=== PATIENT | female | born 1985 | race Caucasian/White ===

== ENCOUNTER 2017-07-13 04:21 | Emergency (ER) | payer BC ==
[~2017-07-13] VITALS: Ht 165.1 cm; Wt 45.4 kg
[~2017-07-13 04:21] MED LIST: ACET-2154 PO; DIAZ2TAB PO; ETHI1TAB24 PO; LIDO20SO PO; Nystatin PO; ONDA4TAB5 IV; OXYC5CAP18 PO; RIZA10TA27 PO
--- NOTE | 2017-07-13 04:25 | NUR ---
DR YISEL REDMOND MD AT BEDSIDE FOR MSE.
[2017-07-13] MEDS ORDERED: IV NORMAL SALINE 1000 ML BAG IV ONE ×2 (04:30→06:30)
[2017-07-13] MEDS ORDERED: KETOROLAC TROMETHAMINE 30 MG INJ IVP ONE (04:30)
[2017-07-13] MEDS ORDERED: ONDANSETRON 4 MG/2 ML VIAL IV ONE (04:30)
[2017-07-13] MEDS ORDERED: MORPHINE SULFATE 2 MG/1 ML DISP.SYRIN IV ONE (04:30)
[2017-07-13] MEDS ORDERED: MORPHINE SULFATE 4 MG/1 ML DISP.SYRIN ONE ×2 (04:38→05:26)
[2017-07-13] MEDS ORDERED: KETOROLAC TROMETHAMINE 30 MG INJ ONE (04:38)
[2017-07-13] MEDS ORDERED: ONDANSETRON 4 MG/2 ML VIAL ONE (04:38)
[2017-07-13] MEDS ORDERED: CAMBIA PO (04:51)
[2017-07-13] MEDS ORDERED: XANAX PO (04:51)
[2017-07-13] MEDS ORDERED: ADDERALL PO (04:53)
[2017-07-13 04:56] LABS: BASOPHILS # (AUTO) 0.1 K/uL (0.0-8.0); BASOPHILS % (AUTO) 1.1 % (0.0-2.0); EOSINOPHILS # (AUTO) 0.1 K/uL (0.0-0.7); EOSINOPHILS % (AUTO) 0.9 % (0.0-7.0); HEMATOCRIT 42.4 % (31.2-41.9); HEMOGLOBIN 14.3 g/dL (10.9-14.3); LYMPHOCYTES # (AUTO) 3.4 K/uL (20.0-40.0); LYMPHOCYTES % (AUTO) 30.2 % (20.5-51.5); MEAN CORPUSCULAR HEMOGLOBIN 30.7 uug (24.7-32.8); MEAN CORPUSCULAR HGB CONC 34 g/dL (32.3-35.6); MEAN CORPUSCULAR VOLUME 91.1 fL (75.5-95.3); MONOCYTES # (AUTO) 0.9 K/uL (2.0-10.0); MONOCYTES % (AUTO) 8.3 % (0.0-11.0); NEUTROPHILS # (AUTO) 6.8 K/uL (1.8-8.9); NEUTROPHILS % (AUTO) 59.5 % (38.5-71.5); PLATELET COUNT (AUTO) 335 K/uL (179-408); RED BLOOD CELL COUNT(AUTO) 4.66 MIL/uL (3.63-4.92); WHITE BLOOD COUNT (AUTO) 11.3 K/uL (3.8-11.8)
[2017-07-13 05:13] LABS: *BILIRUBIN,URIN NEGATIVE (NEGATIVE); *BLOOD, URINE 3+ (NEGATIVE); *CLARITY,URINE CLOUDY (CLEAR); *COLOR,URINE YELLOW (YELLOW); *KETONES,URINE 1+ (NEGATIVE); *PROTEIN,URINE NEGATIVE (NEGATIVE); *UROBILINOGEN,URINE 0.2 E.U./dl (NORMAL); LEUKOCYTE ESTERASE ,URINE NEGATIVE (NEGATIVE); NITRITE, URINE NEGATIVE (NEGATIVE); PH,URINE 8.5 (5.0-8.0); UGLUCOSE NEGATIVE (NEGATIVE)
[2017-07-13 05:15] LABS: BILIRUBIN,DIRECT 0.1 mg/dL (0.0-0.2); BILIRUBIN,TOTAL 0.5 mg/dL (0.2-1.0); CREATININE 0.7 mg/dL (0.6-1.3); POTASSIUM 3.1 mmol/L (3.5-5.1); TOTAL PROTEIN, SERUM 6.9 g/dL (6.4-8.2)
--- NOTE | 2017-07-13 05:15 | NUR ---
RADIOLOGY PAGED FOR CT. CONSENT OBTAINED FROM PT.
[2017-07-13 05:23] LABS: BACTERIA,URINE NONE SEEN /HPF (NONE SEEN); RBC,URINE TNTC /HPF (0-3); SQUAMOUS EPITHELIAL CELL,UR MODERATE /HPF (NONE SEEN); TRIPLE PHOSPHATE CRYSTAL,UR FEW /HPF (NONE SEEN); URINE AMORPHOUS PHOSPHATES MANY /HPF
[2017-07-13] MEDS ORDERED: MORPHINE SULFATE 4 MG/1 ML DISP.SYRIN IV ONE (05:30)
--- NOTE | 2017-07-13 05:41 | NUR ---
PT TAKEN DOWN TO CT BY CENTER MACHINE OPERATOR. NO DISTRESS NOTED.
[2017-07-13 05:54] LABS: BAND % (MANUAL) 1 % (0-10); BASOPHILS % (MANUAL) 1 % (0-2); LYMPHOCYTES % (MANUAL) 35 % (20-40); METAMYELOCYTES % 3 % (0-1); MONOCYTES % (MANUAL) 1 % (2-10); MYELOCYTES % 3 % (0-0); NEUTROPHILS % (MANUAL) 51 % (42-75); PROMYELOCYTES % 4 %
[2017-07-13] MEDS ORDERED: TAMSULOSIN HCL 0.4 MG CAP.SR.24H ONE (06:37)
[2017-07-13] MEDS ORDERED: TAMSULOSIN HCL 0.4 MG CAP.SR.24H PO ONE (06:45)
[2017-07-13 07:06] VITALS: BP 138/82
== END 2017-07-13 07:06 | disposition home or self-care (01) ==
LOC: ER 04:22
DX: N23 Unspecified renal colic (principal); Z90.89 Acquired absence of other organs; Z88.1 Allergy status to other antibiotic agents; Z88.2 Allergy status to sulfonamides; Z88.8 Allergy status to other drugs, medicaments and biological substances; Z79.891 Long term (current) use of opiate analgesic; Z79.899 Other long term (current) drug therapy
CPT/HCPCS: 36415; 84703; 85025; A4663; J1885; J2270; J2405; J7030

== ENCOUNTER 2018-01-25 22:51 | Emergency (ER) | payer BC ==
[~2018-01-25] VITALS: Ht 154.9 cm; Wt 49.9 kg
[~2018-01-25 22:51] MED LIST changes: -ACET-2154 PO; +ADDERALL PO; +CAMBIA PO; -DIAZ2TAB PO; -LIDO20SO PO; -Nystatin PO; -ONDA4TAB5 IV; -OXYC5CAP18 PO; +XANAX PO
[2018-01-25] MEDS ORDERED: ACETAMINOPHEN (23:04)
[2018-01-25] MEDS ORDERED: ALPRAZOLAM 1 MG TABLET (23:04)
[2018-01-25] MEDS ORDERED: ONDANSETRON ODT 4 MG TABLET (23:04)
[2018-01-25] MEDS ORDERED: CAFFEINE (23:04)
[2018-01-25] MEDS ORDERED: BUTALBITAL (23:04)
[2018-01-25] MEDS ORDERED: AZITHROMYCIN (23:04)
[2018-01-25] MEDS ORDERED: ONDANSETRON 4 MG/2 ML VIAL IV ONE (23:30)
[2018-01-25] MEDS ORDERED: KETOROLAC TROMETHAMINE 15 MG INJ IV ONE (23:30)
[2018-01-25] MEDS ORDERED: IV NORMAL SALINE 1000 ML BAG IV ONE (23:30)
[2018-01-25] MEDS ORDERED: OXYCODONE/APAP 5-325 MG TABLET PO ONE (23:30)
--- NOTE | 2018-01-25 23:30 | NUR ---
at bedside for eval
[2018-01-25] MEDS ORDERED: OXYCODONE/APAP 5-325 MG TABLET ONE (23:43)
[2018-01-25] MEDS ORDERED: KETOROLAC TROMETHAMINE 30 MG INJ ONE (23:46)
[2018-01-25] MEDS ORDERED: ONDANSETRON 4 MG/2 ML VIAL ONE (23:46)
--- NOTE | 2018-01-26 01:15 | NUR ---
Patient discharged to home in stable conditon. Written and verbal after care instructions given. Patient verbalizes understanding of instructions. No c./o nausea or pain at this time. Able to ambulate independently. All belongings taken with.
[2018-01-26 01:25] VITALS: BP 134/71
== END 2018-01-26 01:26 | disposition home or self-care (01) ==
LOC: ER 22:56
DX: G43.909 Migraine, unspecified, not intractable, without status migrainosus (principal); F17.200 Nicotine dependence, unspecified, uncomplicated; Z90.89 Acquired absence of other organs; Z88.1 Allergy status to other antibiotic agents; Z88.2 Allergy status to sulfonamides; Z88.8 Allergy status to other drugs, medicaments and biological substances
CPT/HCPCS: A4663; J1885; J2405; J7030

== ENCOUNTER 2018-09-19 18:30 | Emergency (ER) | payer BC ==
[~2018-09-19] VITALS: Ht 154.9 cm; Wt 49.9 kg
[~2018-09-19 18:30] MED LIST changes: +ACETAMINOPHEN; +ALPRAZOLAM 1 MG TABLET; +AZITHROMYCIN; +BUTALBITAL; +CAFFEINE; +ONDANSETRON ODT 4 MG TABLET
[2018-09-19] MEDS ORDERED: IV NORMAL SALINE 1000 ML BAG IV ONE ×2 (18:45→19:30)
[2018-09-19] MEDS ORDERED: ONDANSETRON 4 MG/2 ML VIAL IV ONE ×2 (18:45→19:30)
[2018-09-19] MEDS ORDERED: HYDROMORPHONE 1 MG/1 ML DISP.SYRIN IV ONE ×2 (18:45→19:30)
[2018-09-19] MEDS ORDERED: KETOROLAC TROMETHAMINE 30 MG INJ IVP ONE (18:45)
[2018-09-19] MEDS ORDERED: ONDANSETRON 4 MG/2 ML VIAL ONE ×3 (18:47→20:59)
[2018-09-19] MEDS ORDERED: HYDROMORPHONE 2 MG/1 ML DISP.SYRIN ONE ×2 (18:47→19:40)
[2018-09-19] MEDS ORDERED: KETOROLAC TROMETHAMINE 30 MG INJ ONE (18:47)
[2018-09-19] MEDS ORDERED: LEVOFLOXACIN 750 MG/D5W 150 ML PIGGYBACK IV ONE (19:30)
[2018-09-19] MEDS ORDERED: LEVOFLOXACIN 750MG/D5W 150 ML IV ONE (19:40)
[2018-09-19] MEDS ORDERED: ONDANSETRON IV *ER 4 MG/2 ML VIAL IV ONE (21:00)
[2018-09-19] MEDS ORDERED: ONDANSETRON ODT 4 MG TAB.RAPDIS SL ONE (23:15)
[2018-09-19] MEDS ORDERED: ONDANSETRON ODT 4 MG TAB.RAPDIS ONE (23:17)
[2018-09-19 23:31] VITALS: BP 132/86
== END 2018-09-19 23:40 | disposition home or self-care (01) ==
LOC: ER 18:32
DX: N20.0 Calculus of kidney (principal); G43.909 Migraine, unspecified, not intractable, without status migrainosus; F17.200 Nicotine dependence, unspecified, uncomplicated; Z88.1 Allergy status to other antibiotic agents; Z88.8 Allergy status to other drugs, medicaments and biological substances; Z88.2 Allergy status to sulfonamides; Z90.89 Acquired absence of other organs; Z79.899 Other long term (current) drug therapy; Z79.2 Long term (current) use of antibiotics
CPT/HCPCS: 36415; 84702; 96365; 96375; 96376; 99283; J1170 ×2; J1885; J1956; J2405 ×3; A4663; J7030; Q0162

== ENCOUNTER 2019-01-13 02:53 | Emergency (ER) | payer BC ==
[~2019-01-13] VITALS: Ht 154.9 cm; Wt 47.6 kg
--- NOTE | 2019-01-13 03:09 | NUR ---
Dr. Morgan patient room at bedside
[2019-01-13] MEDS ORDERED: BUTALB/ACETAMINOPHEN/CAFFEINE TABLET PO PRN (03:15)
[2019-01-13] MEDS ORDERED: ONDANSETRON 4 MG/2 ML VIAL IV ONE (03:15)
[2019-01-13] MEDS ORDERED: KETOROLAC TROMETHAMINE 30 MG INJ IVP ONE (03:15)
[2019-01-13] MEDS ORDERED: IV NORMAL SALINE 1000 ML BAG IV ONE (03:15)
[2019-01-13] MEDS ORDERED: ONDANSETRON 4 MG/2 ML VIAL ONE (03:22)
[2019-01-13] MEDS ORDERED: KETOROLAC TROMETHAMINE 30 MG INJ ONE (03:22)
--- NOTE | 2019-01-13 04:26 | NUR ---
Patient discharged to home in stable conditon. Written and verbal after care instructions given. Patient verbalizes understanding of instructions. patient self ambulatory with steady gait. Patient denies any pain/discomfort prior to discharge. Exit care package and personal belongings taken home with the patient.
[2019-01-13 04:28] VITALS: BP 103/71
== END 2019-01-13 04:29 | disposition home or self-care (01) ==
LOC: ER 02:57
DX: G43.909 Migraine, unspecified, not intractable, without status migrainosus (principal); F41.9 Anxiety disorder, unspecified; F17.200 Nicotine dependence, unspecified, uncomplicated; Z90.89 Acquired absence of other organs; Z88.1 Allergy status to other antibiotic agents; Z88.2 Allergy status to sulfonamides; Z88.8 Allergy status to other drugs, medicaments and biological substances; Z79.899 Other long term (current) drug therapy
CPT/HCPCS: 96361; 96374; 96375; 99283; J1885; J2405; A4663; J7030

== ENCOUNTER 2019-06-11 19:14 | Emergency (ER) | payer BC ==
[~2019-06-11] VITALS: Ht 154.9 cm; Wt 49.9 kg
--- NOTE | 2019-06-11 19:54 | NUR ---
ERMD at bedside for MSE
[2019-06-11] MEDS ORDERED: IV NORMAL SALINE 1000 ML BAG IV ONE (20:00)
[2019-06-11] MEDS ORDERED: ONDANSETRON 4 MG/2 ML VIAL IV ONE ×2 (20:00→22:15)
[2019-06-11] MEDS ORDERED: ALPRAZOLAM 0.25 MG TABLET PO ONE (20:00)
[2019-06-11] MEDS ORDERED: HYDROMORPHONE 1 MG/1 ML DISP.SYRIN IV ONE ×3 (20:00→23:00)
[2019-06-11] MEDS ORDERED: HYDROMORPHONE 1 MG/1 ML DISP.SYRIN ONE ×3 (20:03→23:03)
[2019-06-11] MEDS ORDERED: ALPRAZOLAM 0.5 MG TABLET ONE (20:04)
[2019-06-11] MEDS ORDERED: ONDANSETRON 4 MG/2 ML VIAL ONE ×2 (20:04→22:11)
[2019-06-11 20:10] LABS: BASOPHILS # (AUTO) 0.2 K/uL (0.0-8.0); BASOPHILS % (AUTO) 1.3 % (0.0-2.0); EOSINOPHILS # (AUTO) 0.3 K/uL (0.0-0.7); EOSINOPHILS % (AUTO) 2.4 % (0.0-7.0); HEMATOCRIT 42.5 % (31.2-41.9); HEMOGLOBIN 14.2 g/dL (10.9-14.3); LYMPHOCYTES # (AUTO) 4.6 K/uL (20.0-40.0); LYMPHOCYTES % (AUTO) 37.8 % (20.5-51.5); MEAN CORPUSCULAR HEMOGLOBIN 30.7 uug (24.7-32.8); MEAN CORPUSCULAR HGB CONC 34 g/dL (32.3-35.6); MEAN CORPUSCULAR VOLUME 91.5 fL (75.5-95.3); MONOCYTES # (AUTO) 0.5 K/uL (2.0-10.0); MONOCYTES % (AUTO) 4.4 % (0.0-11.0); NEUTROPHILS # (AUTO) 6.6 K/uL (1.8-8.9); NEUTROPHILS % (AUTO) 54.1 % (38.5-71.5); PLATELET COUNT (AUTO) 339 K/uL (179-408); RED BLOOD CELL COUNT(AUTO) 4.64 MIL/uL (3.63-4.92); WHITE BLOOD COUNT (AUTO) 12.1 K/uL (3.8-11.8)
[2019-06-11 20:27] LABS: CARBON DIOXIDE 29 mmol/L (21-32); CHLORIDE 104 mmol/L (98-107); CREATININE 0.9 mg/dL (0.6-1.3); GLUCOSE 96 mg/dL (74-106); POTASSIUM 4.3 mmol/L (3.5-5.1); UREA NITROGEN, BLOOD 14 mg/dL (7-18)
[2019-06-11 20:33] LABS: ALANINE AMINOTRANSFERASE 19 U/L (14-59); ALKALINE PHOSPHATASE 64 U/L (50-136); ASPARTATE AMINOTRANSFERASE 9 U/L (15-37); BILIRUBIN,DIRECT < 0.1 mg/dL (0.0-0.2); BILIRUBIN,TOTAL 0.2 mg/dL (0.2-1.0); LIPASE 212 U/L (73-393); TOTAL PROTEIN, SERUM 6.6 g/dL (6.4-8.2)
[2019-06-11 21:09] LABS: *BILIRUBIN,URIN NEGATIVE (NEGATIVE); *BLOOD, URINE NEGATIVE (NEGATIVE); *COLOR,URINE YELLOW (YELLOW); *KETONES,URINE NEGATIVE (NEGATIVE); *URINE HCG, QUAL NEGATIVE (NEGATIVE); *UROBILINOGEN,URINE 0.2 E.U./dl (NORMAL); LEUKOCYTE ESTERASE ,URINE NEGATIVE (NEGATIVE); NITRITE, URINE NEGATIVE (NEGATIVE); UGLUCOSE NEGATIVE (NEGATIVE)
[2019-06-11 21:14] LABS: *CLARITY,URINE SLIGHTLY HAZY (CLEAR)
[2019-06-11 21:15] LABS: MUCUS,URINE MANY /LPF (0-FEW); SQUAMOUS EPITHELIAL CELL,UR FEW /HPF (NONE SEEN); URINE AMORPHOUS PHOSPHATES FEW /HPF; WBC,URINE 0-3 /HPF (0-3)
[2019-06-11] MEDS ORDERED: KETOROLAC TROMETHAMINE 30 MG INJ ONE (21:39)
[2019-06-11] MEDS ORDERED: TAMSULOSIN HCL 0.4 MG CAP.SR.24H ONE (22:11)
[2019-06-11] MEDS ORDERED: KETOROLAC TROMETHAMINE 30 MG INJ IVP ONE (22:15)
[2019-06-11] MEDS ORDERED: TAMSULOSIN HCL 0.4 MG CAP.SR.24H PO ONE (22:15)
--- NOTE | 2019-06-11 22:39 | NUR ---
Sherif, US tech at bedside for scan
--- NOTE | 2019-06-11 23:22 | NUR ---
Patient discharged to home in stable conditon. Written and verbal after care instructions given. Patient verbalizes understanding of instructions. IV removed. Catheter intact and site benign. Pressure and 4x4 gauze applied to site. No bleeding noted. Patient ambulated with stable gait.
[2019-06-11 23:23] VITALS: BP 125/89
== END 2019-06-11 23:23 | disposition home or self-care (01) ==
LOC: ER 19:16
DX: R10.9 Unspecified abdominal pain (principal); G43.909 Migraine, unspecified, not intractable, without status migrainosus; F17.200 Nicotine dependence, unspecified, uncomplicated; F41.9 Anxiety disorder, unspecified; R11.2 Nausea with vomiting, unspecified; Z88.1 Allergy status to other antibiotic agents; Z88.8 Allergy status to other drugs, medicaments and biological substances; Z79.899 Other long term (current) drug therapy
CPT/HCPCS: 36415; 76770; 80048; 80076; 81000; 81001; 83690; 84703; 85025; 87086; 96361; 96374; 96375; 96376; 99284; J1170 ×3; J1885; J2405 ×2; A4663; C1758; J7030

== ENCOUNTER 2019-09-28 09:56 | Emergency (ER) | payer BC, MEDICAID ==
[~2019-09-28] VITALS: Ht 160 cm; Wt 61.2 kg
[~2019-09-28 09:56] MED LIST changes: +ALBU8HFA4 INH; -AZITHROMYCIN; -ETHI1TAB24 PO; +HYDR-501 PO; +LEVA1.2524 IH; +PRED20TA PO
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
--- NOTE | 2019-09-28 10:10 | NUR ---
Dr. Liang at bedside for MSE.
[2019-09-28] MEDS ORDERED: LORAZEPAM 0.5 MG TABLET PO ONE (10:15)
[2019-09-28] MEDS ORDERED: LORAZEPAM 0.5 MG TABLET ONE (10:27)
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
[2019-09-28 12:30] VITALS: BP 136/96
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
== END 2019-09-28 12:30 | disposition home or self-care (01) ==
LOC: ER 09:56
DX: F41.9 Anxiety disorder, unspecified (principal); F98.8 Other specified behavioral and emotional disorders with onset usually occurring in childhood and adolescence; F41.0 Panic disorder [episodic paroxysmal anxiety]; Z79.899 Other long term (current) drug therapy
CPT/HCPCS: A4663

== ENCOUNTER 2019-10-03 22:24 | Emergency (ER) | payer BC, OTHER ==
[~2019-10-03] VITALS: Ht 154.9 cm; Wt 68.0 kg
[2019-10-03] MEDS ORDERED: IPRA42SP NS (22:40)
[2019-10-03] MEDS ORDERED: LEVO5TAB29 PO (22:40)
[2019-10-03] MEDS ORDERED: PROM50TA3 PO (22:40)
[2019-10-03] MEDS ORDERED: TIOT18CA3 IH (22:40)
[2019-10-03] MEDS ORDERED: MONT10TA22 PO (22:40)
--- NOTE | 2019-10-03 22:44 | NUR ---
Dr Liang into eval patient.
[2019-10-03] MEDS ORDERED: IV NORMAL SALINE 1000 ML BAG IV ONE (23:00)
[2019-10-03] MEDS ORDERED: ONDANSETRON 4 MG/2 ML VIAL IV ONE (23:00)
[2019-10-03] MEDS ORDERED: HYDROMORPHONE 1 MG/1 ML DISP.SYRIN IV ONE (23:00)
[2019-10-03] MEDS ORDERED: ONDANSETRON 4 MG/2 ML VIAL ONE (23:03)
[2019-10-03] MEDS ORDERED: HYDROMORPHONE 2 MG/1 ML DISP.SYRIN ONE (23:03)
[2019-10-03 23:07] LABS: BASOPHILS # (AUTO) 0.1 K/uL (0.0-8.0); BASOPHILS % (AUTO) 1.3 % (0.0-2.0); EOSINOPHILS # (AUTO) 0.2 K/uL (0.0-0.7); EOSINOPHILS % (AUTO) 2.6 % (0.0-7.0); HEMATOCRIT 41.5 % (31.2-41.9); HEMOGLOBIN 14.1 g/dL (10.9-14.3); LYMPHOCYTES # (AUTO) 2.7 K/uL (20.0-40.0); LYMPHOCYTES % (AUTO) 36.2 % (20.5-51.5); MEAN CORPUSCULAR HEMOGLOBIN 29.8 uug (24.7-32.8); MEAN CORPUSCULAR HGB CONC 34 g/dL (32.3-35.6); MEAN CORPUSCULAR VOLUME 87.9 fL (75.5-95.3); MONOCYTES # (AUTO) 0.7 K/uL (2.0-10.0); MONOCYTES % (AUTO) 9.5 % (0.0-11.0); NEUTROPHILS # (AUTO) 3.7 K/uL (1.8-8.9); NEUTROPHILS % (AUTO) 50.4 % (38.5-71.5); PLATELET COUNT (AUTO) 338 K/uL (179-408); RED BLOOD CELL COUNT(AUTO) 4.72 MIL/uL (3.63-4.92); WHITE BLOOD COUNT (AUTO) 7.4 K/uL (3.8-11.8)
[2019-10-03 23:17] LABS: BILIRUBIN,DIRECT 0.1 mg/dL (0.0-0.2); BILIRUBIN,TOTAL 0.3 mg/dL (0.2-1.0); CREATININE 0.8 mg/dL (0.6-1.3); POTASSIUM 3.5 mmol/L (3.5-5.1); TOTAL PROTEIN, SERUM 7.5 g/dL (6.4-8.2)
[2019-10-04] MEDS ORDERED: IV NORMAL SALINE 1000 ML BAG IV ONE ×2 (00:15→01:00)
[2019-10-04 02:21] LABS: *BILIRUBIN,URIN NEGATIVE (NEGATIVE); *BLOOD, URINE 1+ (NEGATIVE); *CLARITY,URINE CLEAR (CLEAR); *KETONES,URINE NEGATIVE (NEGATIVE); *UROBILINOGEN,URINE 0.2 E.U./dl (NORMAL); LEUKOCYTE ESTERASE ,URINE NEGATIVE (NEGATIVE); NITRITE, URINE NEGATIVE (NEGATIVE); UGLUCOSE NEGATIVE (NEGATIVE)
[2019-10-04 02:23] LABS: *COLOR,URINE STRAW (YELLOW); *URINE HCG, QUAL NEGATIVE (NEGATIVE)
[2019-10-04 02:28] LABS: WBC,URINE 0-3 /HPF (0-3)
[2019-10-04 02:29] LABS: BACTERIA,URINE MODERATE /HPF (NONE SEEN); MUCUS,URINE MODERATE /LPF (0-FEW); SQUAMOUS EPITHELIAL CELL,UR MODERATE /HPF (NONE SEEN)
--- NOTE | 2019-10-04 02:35 | NUR ---
IV removed. Catheter intact and site benign. Pressure and 4x4 gauze applied to site. No bleeding noted.
[2019-10-04 02:37] VITALS: BP 129/66
--- NOTE | 2019-10-04 02:37 | NUR ---
Patient discharged to home in stable condition with father taking patient home. Written and verbal after care instructions given. Patient verbalizes understanding of instructions. Stressed follow up or return to ER for worsening s/s.
== END 2019-10-04 02:38 | disposition home or self-care (01) ==
LOC: ER 22:25
DX: M54.5 Low back pain (principal); R00.0 Tachycardia, unspecified; G89.29 Other chronic pain; F41.0 Panic disorder [episodic paroxysmal anxiety]; G43.909 Migraine, unspecified, not intractable, without status migrainosus; Z79.899 Other long term (current) drug therapy
CPT/HCPCS: 36415; 80048; 80076; 81001; 83690; 84703; 85025; 87086; 96361; 96374; 96375; 99284; J1170; J2405; A4663; J7030

== ENCOUNTER 2020-07-09 12:30 | Emergency (ER) | payer BC, OTHER ==
[~2020-07-09] VITALS: Ht 162.6 cm; Wt 61.2 kg
[~2020-07-09 12:30] MED LIST changes: +IPRA42SP NS; -LEVA1.2524 IH; +LEVO5TAB29 PO; +MONT10TA22 PO; -PRED20TA PO; +PROM50TA3 PO; +TIOT18CA3 IH
[2020-07-09] MEDS ORDERED: IV NORMAL SALINE 1000 ML BAG IV ONE (13:00)
[2020-07-09] MEDS ORDERED: methylPREDNISolone SOD SUCC 125 MG/2 ML VIAL IV ONE (13:00)
[2020-07-09] MEDS ORDERED: methylPREDNISolone SOD SUCC 125 MG/2 ML VIAL ONE (13:03)
--- NOTE | 2020-07-09 13:12 | NUR ---
Pt is very anxious and hyperventtales. Pt states feeling short of breath, 02 sat on room aair is 100%. Pt states all her medications are "wearing Off" but not able to provide me w/ names & doses. Guidance given to pt, to slow, deep breaths and relaxing techniques, Pt not cooperative, and dosen't follow instrections.
--- NOTE | 2020-07-09 13:49 | NUR ---
Pt VSS are stable, Pt anxious intmittently.
--- NOTE | 2020-07-09 14:30 | NUR ---
Patient discharged to home in stable condition. Written and verbal after care instructions given. Patient verbalizes understanding of instructions. Stressed follow up or return to ER for worsening s/s.
[2020-07-09 14:40] VITALS: BP 122/76
== END 2020-07-09 14:30 | disposition home or self-care (01) ==
LOC: ER 12:31
DX: F41.0 Panic disorder [episodic paroxysmal anxiety] (principal); F98.8 Other specified behavioral and emotional disorders with onset usually occurring in childhood and adolescence; G43.909 Migraine, unspecified, not intractable, without status migrainosus; Z79.899 Other long term (current) drug therapy; Z88.0 Allergy status to penicillin; Z88.2 Allergy status to sulfonamides; Z88.8 Allergy status to other drugs, medicaments and biological substances
CPT/HCPCS: 96361; 96374; 99284; J2930; A4663; J7030